=== PATIENT | female | born 1945 | race Caucasian/White ===

== ENCOUNTER 2017-08-04 17:06 | Emergency (ER) | payer MEDICARE ==
[2017-08-04 17:32] VITALS: BP 152/63
[2017-08-04] MEDS ORDERED: Lidocaine 1% MPF* 2 ML VIAL INJ ONE (18:26)
--- NOTE | 2017-08-04 18:54 | UC ---
Laceration HPI - History Of Current Complaint Chief Complaint: UCLaceration Stated Complaint: FINGER INJURY Time Seen by Provider: 08/04/17 18:18 Hx Obtained From: Patient Laceration Location: Finger - cut L 4th finger with sharp kitchen knife Mechanism Of Injury: Sharp Trauma Onset/Duration: Sudden Onset - 1-2 h ago Pain Intensity: 3 - Allergies/Home Medications Allergies/Adverse Reactions: Allergies Allergy/AdvReac Type Severity Reaction Status Date / Time ampicillin Allergy Vomiting Verified 08/04/17 17:33 Home Medications: Home Medications Levothyroxine TAB* [Synthroid 100 MCG TAB*] 1 tab PO DAILY 08/04/17 [History Confirmed 08/04/17] PMH/Surg Hx/FS Hx/Imm Hx Previously Healthy: Yes Endocrine History: Hypothyroidism - Surgical History Surgical History: Unable to Obtain/Confirm - Family History Known Family History: Positive: None - Social History Occupation: Retired Lives: Alone Alcohol Use: None Substance Use Type: None Smoking Status (MU): Former Smoker - Immunization History Most Recent Tetanus Shot: 10 yrs ago Review of Systems Constitutional: Negative Respiratory: Negative Cardiovascular: Negative Motor: Negative Neurological: Negative Psychological: Negative Is Patient Immunocompromised?: No All Other Systems Reviewed And Are Negative: Yes Physical Exam Triage Information Reviewed: Yes Appearance: Well-Appearing, No Pain Distress, Obese Vital Signs: Initial Vital Signs Temp 98.3 F 08/04/17 17:29 Pulse 67 08/04/17 17:29 Resp 18 08/04/17 17:29 BP 152/63 08/04/17 17:29 Pulse Ox 97 08/04/17 17:29 Vital Signs Reviewed: Yes Respiratory Exam: Normal Cardiovascular Exam: Normal Musculoskeletal Exam: Normal Musculoskeletal: Positive: Strength Intact, ROM Intact Neurological Exam: Normal Neurological: Positive: Alert Psychological Exam: Normal Skin Exam: Other - laceration L 4th finger Laceration Repair - Laceration Repair 1 Description: Linear Laceration Size After Repair: Length (cm) - 1.5cm, Width (mm) - 4mm, Depth (mm) - 3mm Modified For Repair: No Type Injection: Local Anesthesia Used: 1.0% Lido Cleansing Completed Via Routine Prep: Yes Closure Material: Sutures Closure Method: Single Layer Suture Of: Skin Suture Type: Nylon - 3 5.0 nylon sutres placed Laceration Course/Dx - Differential Dx - Laceration/Wound Differental Diagnoses: Avulsion, Laceration Provider Diagnoses: finger laceration Discharge - Discharge Plan Condition: Good Disposition: HOME Patient Education Materials: Laceration (ED) Referrals: Marianne Zamudio MD [Primary Care Provider] - 2 Days (for wound recheck) Additional Instructions: elevate hand keep clean and dry have sutures removed in 8-10 days ibuprofen 400mg every 6 hours as needed for pain
[2017-08-04] MEDS ORDERED: Tetan/Diph/Pertus SYR(Tdap)* 0.5 ML SYR(BOOSTRIX) use SYR IM ONE (18:58)
== END 2017-08-04 19:13 | disposition home or self-care (01) ==
LOC: UCEAST 17:06
DX: S61.215A Laceration without foreign body of left ring finger without damage to nail, initial encounter (principal); W26.0XXA Contact with knife, initial encounter; Y92.9 Unspecified place or not applicable; E03.9 Hypothyroidism, unspecified; Z87.891 Personal history of nicotine dependence
CPT/HCPCS: 12001; 99201; G0463

== ENCOUNTER 2018-03-18 08:56 | Emergency (ER) | payer MEDICARE ==
[2018-03-18 10:22] VITALS: BP 138/82
--- NOTE | 2018-03-18 10:55 | UC ---
Respiratory Complaint HPI - HPI Summary HPI Summary: 72 y/.o female with + PMH, + medications, reviewed, presents with cough since beginning of feb, dx'd with bronchitis, given Z-pack, however onyl took 4 pills. states symptoms improved, but returned, worse for past week. h/o bronchitis yearly, PNA x 2, recent PNA shot. + productive, green sputum. Denies SOB, chest pain. + lightheaded, dizziness from coughing. no ear, throat pain. + sinus pressure, pain , h/o allergies. - History of Current Complaint Chief Complaint: UCRespiratory Stated Complaint: COUGH,CONGESTED Time Seen by Provider: 03/18/18 10:28 Hx Obtained From: Patient ?: No Onset/Duration: Gradual Onset, Lasting Weeks, Worse Since - x 1 week Timing: Constant Severity Initially: Moderate Severity Currently: Moderate Pain Intensity: 7 Pain Scale Used: 0-10 Numeric Associated Signs And Symptoms: Positive: Fever - 99.60hits M, Chills - Risk Factors Pulmonary Embolism Risk Factors: Smoking - prior - Allergies/Home Medications Allergies/Adverse Reactions: Allergies Allergy/AdvReac Type Severity Reaction Status Date / Time ampicillin Allergy Vomiting Verified 03/18/18 10:22 Home Medications: Home Medications Calcium Carbonate [Calcium] 500 mg PO 03/18/18 [History] Lisinopril 10 mg PO 03/18/18 [History] Magnesium 30 mg PO 03/18/18 [History] Multivitamin [Multivitamins] 1 cap PO 03/18/18 [History] Omeprazole 20 mg PO 03/18/18 [History] PMH/Surg Hx/FS Hx/Imm Hx Previously Healthy: No - Surgical History Surgical History: Yes Surgery Procedure, Year, and Place: appy, tubal ligation, thyroid noduel removed , rt ewrist, mastectomy, ovarian ca - Family History Known Family History: Positive: None - Social History Alcohol Use: None Substance Use Type: None Smoking Status (MU): Former Smoker - Immunization History Most Recent Tetanus Shot: 10 yrs ago Review of Systems Constitutional: Chills, Fatigue ENT: Sinus Congestion, Sinus Pain/Tenderness Respiratory: Shortness Of Breath - at baseline, Cough Gastrointestinal: Negative Genitourinary: Negative Is Patient Immunocompromised?: No All Other Systems Reviewed And Are Negative: Yes Physical Exam Triage Information Reviewed: Yes Appearance: Well-Appearing, No Pain Distress, Well-Nourished Vital Signs: Initial Vital Signs Temp 97.8 F 03/18/18 10:16 Pulse 81 03/18/18 10:16 Resp 18 03/18/18 10:16 BP 138/82 03/18/18 10:16 Pulse Ox 98 03/18/18 10:16 Vital Signs Reviewed: Yes Eyes: Positive: Conjunctiva Clear ENT: Positive: Pharyngeal erythema - minimal no exudates, TMs normal, Sinus tenderness - max, Uvula midline. Negative: Tonsillar swelling, Tonsillar exudate, Muffled voice Neck: Positive: Supple, Nontender, No Lymphadenopathy Respiratory: Positive: Chest non-tender, Normal breath sounds, No respiratory distress, No accessory muscle use, Crackles - minimal LLL, Wheezing - minimal L LL Cardiovascular Exam: Normal Psychological Exam: Normal Skin Exam: Normal UC Diagnostic Evaluation - Laboratory O2 Sat by Pulse Oximetry: 98 Respiratory Course/Dx - Course Course Of Treatment: discussed CXR, patient declined due to treatment options, ABX for sinusitis to cover possible PNA due to no CXR + crackles. Follow up with PCP. - Differential Dx/Diagnosis Differential Diagnosis/HQI/PQRI: Pulmonary Edema, Influenza, Pneumothorax Provider Diagnoses: sinusitis, acute bronchitis Discharge - Sign-Out/Discharge Documenting (check all that apply): Patient Departure All imaging exams completed and their final reports reviewed: Yes - Discharge Plan Condition: Good Disposition: HOME Prescriptions: Albuterol HFA INHALER* [Ventolin HFA Inhaler*] 1 - 2 puff INH Q4H PRN #1 mdi PRN Reason: shortness of breath Fluconazole [Diflucan 150 MG (NF)] 150 mg PO ONCE #1 tab Levofloxacin TAB* [Levaquin 750 MG TAB*] 750 mg PO DAILY #7 tab Patient Education Materials: Levofloxacin (By mouth), Sinusitis (ED) Referrals: Marianne Zamudio MD [Primary Care Provider] - Additional Instructions: - Dlfucan as needed for yeast infection due to antibiotics - Levofloxacin daily x 7 days - Albuterol inhaler if needed for shortness of breath - over the counter cough drops, increase fluid intake, humidifier at night to decrease coughing - Return with fever > 101, increased cough, lightheaded, dizziness worsens - Billing Disposition and Condition Condition: GOOD Disposition: Home
== END 2018-03-18 11:00 | disposition home or self-care (01) ==
LOC: UCEAST 08:56
DX: J20.9 Acute bronchitis, unspecified (principal); J32.9 Chronic sinusitis, unspecified; Z88.0 Allergy status to penicillin; Z87.891 Personal history of nicotine dependence
CPT/HCPCS: 99212; G0463

== ENCOUNTER 2018-06-28 12:29 | Emergency (ER) | payer MEDICARE ==
--- NOTE | 2018-06-28 13:00 | UC ---
Hand/Wrist HPI - HPI Summary HPI Summary: 72 yo female presents with RIGHT middle finger pain and swelling distally. She tells me that for about a month she has had redness, pain, and swelling to this area. Over the last 1.5 weeks has been draining pus. She saw her PCP earlier this week who placed on her Keflex and she states it is getting worse. She does mention that she injured this area in September 2017 and the "finger hasn't bent right since". Denies fever or chills. - History Of Current Complaint Stated Complaint: FINGER COMPLAINT Time Seen by Provider: 06/28/18 13:00 Hx Obtained From: Patient Onset/Duration: Gradual Onset Severity Initially: Moderate Severity Currently: Severe Pain Intensity: 9 Pain Scale Used: 0-10 Numeric - Allergies/Home Medications Allergies/Adverse Reactions: Allergies Allergy/AdvReac Type Severity Reaction Status Date / Time ampicillin Allergy Vomiting Verified 06/28/18 13:02 Home Medications: Home Medications [place] 1 applic TOPICAL ONCE PRN 06/28/18 [History] Cephalexin CAP* [Keflex 500 CAP*] 1 tab PO BID 06/28/18 [History Confirmed 06/28] PMH/Surg Hx/FS Hx/Imm Hx Endocrine History: Hypothyroidism Cardiovascular History: Hypertension Respiratory History: Asthma GI/ History: Gastroesophageal Reflux - Surgical History Surgical History: Yes Surgery Procedure, Year, and Place: appy, tubal ligation, thyroid noduel removed , rt ewrist, mastectomy, ovarian ca - Family History Known Family History: Positive: None - Social History Occupation: Retired Lives: With Family Alcohol Use: None Substance Use Type: None Smoking Status (MU): Former Smoker - Immunization History Most Recent Tetanus Shot: 10 yrs ago Review of Systems All Other Systems Reviewed And Are Negative: Yes Constitutional: Positive: Negative Skin: Positive: Other - Right middle finger paronychia Respiratory: Positive: Negative Cardiovascular: Positive: Negative Neurological: Positive: Negative Psychological: Positive: Negative Physical Exam - Summary Physical Exam Summary: GENERAL: NAD. WDWN. No pain distress. SKIN: Right middle finger: Distal phalange with moderate erythema and edema. TTP. Paronychia presents on ulnar aspect of nail-skin fold. No active drainage. CHEST: No accessory muscle use. Breathing comfortably and in no distress. CV: Pulses intact radial and ulnar. Cap refill <2seconds MSK: FROM right middle finger. NEURO: Alert. Sensations intact hand and all fingers. PSYCH: Age appropriate behavior. Triage Information Reviewed: Yes Vital Signs: Vital Signs: Temp Pulse Resp BP Pulse Ox 97.2 F 98 18 134/88 98 06/28/18 12:55 06/28/18 12:55 06/28/18 12:55 06/28/18 12:55 06/28/18 12:55 Vital Signs Reviewed: Yes Hand/Wrist Course/Dx - Course Course Of Treatment: XR: IMPRESSION: #. Soft tissue swelling greatest distally without compelling radiographic findings of. osteomyelitis. If there is persistent clinical concern for osteomyelitis consider MRI for. further assessment. The procedure was explained to the pt and all questions were answered. A time out was performed, witnessed, and signed. The area was cleansed with an alcohol pad. LET was applied and let sit for ~20min. A 22G needle was used to lidia the area of paronychia. Yellow/brown purulent matter was able to be expressed. A culture was obtained. Wound bandaged with triple antibiotic and a band-aid. Pt tolerated procedure well. Will switch her to doxycycline as pt says it seems worse despite keflex. - Differential Dx/Diagnosis Provider Diagnosis: Paronychia of right middle finger Discharge - Sign-Out/Discharge Documenting (check all that apply): Patient Departure All imaging exams completed and their final reports reviewed: Yes - Discharge Plan Condition: Stable Disposition: HOME Prescriptions: DOXYcycline CAP(*) [DOXYcycline 100MG CAP(*)] 100 mg PO BID #14 cap Patient Education Materials: Paronychia (ED) Referrals: Marianne Zamudio MD [Primary Care Provider] - Additional Instructions: If you develop a fever, shortness of breath, chest pain, new or worsening symptoms - please call your PCP or go to the ED. STOP taking your keflex and start the DOXYCYCLINE Keep soaking your finger in warm salt water two or three times a day Keep the area covered with a bandaid until well healed - keep your follow up with your Primary Doctor for a recheck - Billing Disposition and Condition Condition: STABLE Disposition: Home - Attestation Statements Provider Attestation: Per institutional requirements, I have reviewed the chart, however, I was not consulted specifically or made aware of this patient by the midlevel provider. I did not personally evaluate, interact with , or disposition this patient.
[2018-06-28 13:02] VITALS: BP 134/88
[2018-06-28] MEDS: Lidocaine/Epineph/Tetraca SOL* (LET solution) 4 ML BTL TOPICAL ONE ×2 (13:23→13:30)
--- NOTE | 2018-06-30 15:10 | UC ---
- Progress Note Progress Note: please notify pt she should see her MD tomorrow if possible infection resistant to most oral antibiotics except the one she is allergic to ( amp) if finger worse go to ER it is possible that I and D may be curative Course/Dx - Diagnoses Provider Diagnoses: Paronychia of right middle finger Discharge - Sign-Out/Discharge Documenting (check all that apply): Post-Discharge Follow Up All imaging exams completed and their final reports reviewed: Yes - Discharge Plan Condition: Stable Disposition: HOME Prescriptions: DOXYcycline CAP(*) [DOXYcycline 100MG CAP(*)] 100 mg PO BID #14 cap Patient Education Materials: Paronychia (ED) Referrals: Marianne Zamudio MD [Primary Care Provider] - Additional Instructions: If you develop a fever, shortness of breath, chest pain, new or worsening symptoms - please call your PCP or go to the ED. STOP taking your keflex and start the DOXYCYCLINE Keep soaking your finger in warm salt water two or three times a day Keep the area covered with a bandaid until well healed - keep your follow up with your Primary Doctor for a recheck - Billing Disposition and Condition Condition: STABLE Disposition: Home
--- NOTE | 2018-06-30 15:36 | UC ---
- Progress Note Progress Note: Pt states ampicillin causes gi upset no true allergy will ERx pen vee K 500mg qid x 7 days and zofran 4 mg prn nausea Course/Dx - Diagnoses Provider Diagnoses: Paronychia of right middle finger Discharge - Sign-Out/Discharge Documenting (check all that apply): Post-Discharge Follow Up All imaging exams completed and their final reports reviewed: Yes - Discharge Plan Condition: Stable Disposition: HOME Prescriptions: DOXYcycline CAP(*) [DOXYcycline 100MG CAP(*)] 100 mg PO BID #14 cap Patient Education Materials: Paronychia (ED) Referrals: Marianne Zamudio MD [Primary Care Provider] - Additional Instructions: If you develop a fever, shortness of breath, chest pain, new or worsening symptoms - please call your PCP or go to the ED. STOP taking your keflex and start the DOXYCYCLINE Keep soaking your finger in warm salt water two or three times a day Keep the area covered with a bandaid until well healed - keep your follow up with your Primary Doctor for a recheck - Billing Disposition and Condition Condition: STABLE Disposition: Home
== END 2018-06-28 14:04 | disposition home or self-care (01) ==
LOC: UCEAST 12:29
DX: L03.011 Cellulitis of right finger (principal); Z88.0 Allergy status to penicillin; Z87.891 Personal history of nicotine dependence
CPT/HCPCS: 10060; 73140; 87070; 87077; 87106; 87186; 87205; 99212; G0463

== ENCOUNTER → 2018-07-24 11:32 | Day surgery (SDC) | payer MEDICARE ==
[~2018-07-24 11:32] MED LIST: Acetaminophen TAB* 325 MG PO PRN; Buffered Lidocaine 1% SYRIN* 1 ML/SYRINGE INTRADERM ONE; Bupivacaine 0.5%* 50 ML VIAL ONE; Clindamycin 900 MG/D5W BAG(*) 900 MG/50 ML BAG IVPB ONE; HYDROmorphone INJ1* 1 MG/ML SYRINGE IV PRN; Lactated Ringers 1000 ML Bag* 1,000 ML IV SCH; Lidocaine 1% INJ* 10 MG/ML 30 ML SDV ONE; Lidocaine 2% PF * 5 ML VIAL ONE; Midazolam* 1 MG/ML 2 ML VIAL (2 MG) ONE; Naloxone* 0.4 MG/ML 1 ML VIAL IV PRN; Ondansetron INJ* 2 MG/ML VIAL IV PRN; Propofol* 10 MG/ML 20 ML BTL ONE; fentaNYL* 50 MCG/ML 2 ML VIAL (100 MCG VIAL) ONE; oxyCODONE TAB* 5 MG TAB PO PRN
[2018-07-24 16:05] VITALS: BP 99/53
--- NOTE | 2018-07-25 20:00 | OP ---
DATE OF OPERATION: 07/24/18 - [facility] DATE OF : 45 SURGEON: Dr. You Rockwell. INSPECTOR HANDBAG FRAMES: Primo Gonsales. A physician certified registered dental assistant was required for the length of the procedure for assistance with the patient's positioning, retraction, and closure. ANESTHESIOLOGIST: Dalia Santamaria DO ANESTHESIA: Monitored anesthesia care with general sedation along with a local digital nerve block consisting of 10 cc of 1:1 ratio of lidocaine 1% and Marcaine 0.5% without epinephrine. PRE-OP DIAGNOSES: 1. Right long finger paronychia, acute/chronic, with bacterial and fungal infection. 2. Right long finger, ingrown nail plate. 3. Right long finger possible felon, finger pulp infection. POST-OP DIAGNOSES: 1. Right long finger paronychia, acute/chronic, likely just a fungal infection. 2. Right long finger, ingrown nail plate. 3. No sign of right long finger felon, finger pulp infection or of osteomyelitis. OPERATIVE PROCEDURE: 1. Right long finger nail plate removal. 2. Right long finger distal fingertip irrigation and drainage, pulp, nail folds , with marsupialization, single skin incision, proximal. ANTIBIOTICS: Clindamycin 900 mg was given after cultures were obtained intraoperatively. IV FLUIDS: See anesthesia note. TOURNIQUET TIME: A finger tourniquet was utilized for 20 minutes for the length of the procedure. [id number]-[id number] TIME: 20 minutes. SPECIMEN: Aerobic, anaerobic, and fungal culture swabs were obtained of the nail bed and skin folds after the nail plate was removed. IMPLANTS: None. COMPLICATIONS: None. ESTIMATED BLOOD LOSS: Minimal. INDICATIONS FOR PROCEDURE: The patient is a 73-year-old woman, who presented to me for the first time in clinic on 07/09/18. See history and physical for full description of prior care, but the patient in short had had symptoms for approximately 6 weeks. She describes pus, treated with oral antibiotics and then treated with just decompression with a needle with some drainage, persistent. The patient also had some skin changes, but only at the distal tip of the nail plate in clinic and she attributed that to an injury to the fingertip last September, at which point she did not have any signs of infection, but just nail plate trauma. The patient from an ER convenient care visit, had had her pus cultured on 06/28/18 and that was read as showing Enterococcus faecalis, penicillin sensitive as well as Kathie albicans. The patient had been soaking her finger very aggressively to get rid off of her bacterial infection. She had been on a variety of antibiotics, but was on penicillin when I met her. I had her continue the penicillin until surgery date. There was some delay between clinic visit on 07/09/18 and surgery because of obtaining medical clearance. I examined the patient again in preoperative holding. I discussed with the patient in clinic doing a partial nail plate removal and irrigation and debridement of the nail fold on one side. However, her nail plate looked worse when I examined her in preoperative holding. It was still curved, digging in on either the radial or the ulnar side significantly into the skin. I believe that was the ulnar side of the nail plate really digging into the skin. However , the nail plate looked well attached to the underlying nail bed and as well the nail plate had lost more of its shininess, consistent with more of a fungal infection picture. Although the patient told me in preoperative holding that she had had pus draining that day, the day of the procedure, I saw no pus visible. She had some swelling and some redness to the fingertip. The patient was concerned about an infection in the finger pulp because she pointed to pain there. The patient was also concerned about an infection to her joint and bone. However, she had no pain whatsoever with active range of motion at the DIP joint. Preoperative x-rays had shown no bony changes. I changed the procedure to indicate that the patient was going to undergo a right long finger partial or complete nail plate removal, possible irrigation and debridement of finger pulp, possible marsupialization of the proximal nail fold. DESCRIPTION OF PROCEDURE: The patient was taken back to the operating room on a stretcher on which she remained. She was sedated by Anesthesia. Hand table was applied. The patient received a digital nerve block. I did a flexor tendon sheath block followed by digital nerves on either side of the finger followed by dorsal cutaneous nerve block with 10 cc. The patient's right hand was prepped and draped. Surgical time-out was performed. Tourni-Cot was applied to the base of the right long finger. I inspected the finger. I vigorously palpated it; no pus emanated from about the nail plate and bed. The nail plate looked diseased along much of it width, ulnar to radial, so I decided to remove it entirely. I used a #11 blade to release the nail plate sharply from the overlying proximal nail fold. I used a [place] to separate the nail plate from the underlying nail bed. I then was able to easily without much force remove the nail plate with a needle assembly line driver. Underlying, there was no sign of pus. The nail bed looked like it was in very good shape. No clear infection to it with the exception of the distal and the distal ulnar aspects of the nail bed looked slightly beaten up, but there was certainly no pus and certainly no clear fungal infection. I debrided the recess on the ulnar distal part of the nail fold where the nail had been really digging in there. Likewise, no pus there. I irrigated the whole wound. To most aggressively eradicate any possible fungal infection, I decided next to do a proximal release and possible marsupialization. I made an incision in the skin parallel to the proximal nail fold, 2 mm proximal to it. The tissue looked very healthy. I respected the dermal matrix and did not make the incision into it. There was no disease looking tissue there, so I decided not to excise a fragment with a separate proximal incision. I had not appreciated any clear fluctuance of the pulp, but for thoroughness sake, I made an incision in the finger pulp, volarly. I spread dissection down to bone. There was no pus anywhere in the finger pulp. The bone felt rigid and not soft consistent with no osteomyelitis. I irrigated that. I closed the volar incision with a stitch using nylon 4-0 suture. I did not close the marsupialization incision to allow some drainage from there. To allow for proper healing, I took some sterile aluminum from a suture set, cut it to the size of the former nail plate and inserted it under the nail folds. I sutured it in place, loosely with 2 simple stitches using Monocryl 4- 0 suture. I cut the Tourni-Cot. I applied a dry sterile dressing and overwrapped it with Coban. The patient was awakened, lightened of sedation and transferred to the PACU. DISPOSITION: The patient was to keep the dressing intact and dry. In case she got it wet, she was given some dressing supplies. The patient is to follow up with me in clinic next week. We will hold the patient off the antibiotic at this time as there is no clear bacterial infection and I believe this is more of a ingrown nail and fungal infection. When she returns to clinic next week, we will do a wound check, and discuss possible topical antifungals, keep the fingertip dry, and discuss removal of that foil covering that is providing some temporary protection of the nail bed. [id number]/[facility] #: [id number] MTDD
== END | disposition home or self-care (01) ==
LOC: OR 11:32
PROVIDERS: ATTEND Orthopaedic Surgery
DX: L03.011 Cellulitis of right finger (principal); L60.0 Ingrowing nail; Z87.891 Personal history of nicotine dependence; Z85.3 Personal history of malignant neoplasm of breast; Z85.43 Personal history of malignant neoplasm of ovary
CPT/HCPCS: 87070; 87073; 87077; 87101; 87186; 87205; 87640; 87641; J2250; J2704; J3010

== ENCOUNTER 2019-01-31 11:32 | Emergency (ER) | payer MEDICARE ==
[2019-01-31 12:35] VITALS: BP 127/71
--- NOTE | 2019-01-31 12:58 | UC ---
General HPI - HPI Summary HPI Summary: 73-year-old woman comes in with a chief complaint of chest congestion and shortness of breath. Patient's had chest congestion for about one month. Most of time the sputum is white. Last evening she had a coughing fit that she brought up green sputum. Reports loss she has midsternal chest tightness. She believes the chest tightness is from the chest congestion. She denies concern of heart problems. No pedal edema no calf pain. She's had chills. She does not have a thermometer to check if she has had elevated temperature. She is mildly short of breath at rest worse with any kind of activity. - History of Current Complaint Chief Complaint: UCRespiratory Stated Complaint: COUGH, AND CHEST CONGESTION Time Seen by Provider: 01/31/19 12:36 Pain Intensity: 4 - Allergy/Home Medications Allergies/Adverse Reactions: Allergies Allergy/AdvReac Type Severity Reaction Status Date / Time amoxicillin [From Augmentin] Allergy Vomiting Verified 07/24/18 12:32 ampicillin Allergy Vomiting Verified 07/24/18 12:32 chromium Allergy Rash Verified 07/24/18 12:32 clavulanic acid Allergy Vomiting Verified 07/24/18 12:32 [From Augmentin] PMH/Surg Hx/FS Hx/Imm Hx Previously Healthy: Yes - . iT Endocrine History: Hypothyroidism Cardiovascular History: Hypertension Respiratory History: COPD GI/ History: Gastroesophageal Reflux - Surgical History Surgical History: Yes Surgery Procedure, Year, and Place: APPENDECTOMY, tubal ligation, thyroid nodule removed, rt wrist, mastectomy, HYSTERECTOMY - Family History Known Family History: Positive: None - Social History Alcohol Use: None Substance Use Type: None Smoking Status (MU): Former Smoker Amount Used/How Often: 1/2 PPD X 50 YEARS Have You Smoked in the Last Year: No When Did the Patient Quit Smoking/Using Tobacco: 2 YEARS AGO - Immunization History Most Recent Tetanus Shot: 10 yrs ago Review of Systems All Other Systems Reviewed And Are Negative: Yes Constitutional: Positive: Other - SEE HPI Skin: Positive: Negative Eyes: Positive: Negative ENT: Positive: Sore Throat Respiratory: Positive: Shortness Of Breath, Cough, Other - SEE HPI Cardiovascular: Positive: Chest Pain Gastrointestinal: Positive: Negative Motor: Positive: Negative Neurovascular: Positive: Negative Musculoskeletal: Positive: Negative Neurological: Positive: Negative Psychological: Positive: Negative Is Patient Immunocompromised?: No Physical Exam Triage Information Reviewed: Yes Appearance: No Pain Distress, Well-Nourished, Ill-Appearing - MILD Vital Signs: Initial Vital Signs Temp 98 F 01/31/19 12:32 Pulse 94 01/31/19 12:32 Resp 17 01/31/19 12:32 BP 127/71 01/31/19 12:32 Pulse Ox 97 01/31/19 12:32 Vital Signs Reviewed: Yes Eye Exam: Normal Eyes: Positive: Conjunctiva Clear ENT: Positive: Pharynx normal, TMs normal Neck: Positive: Supple Respiratory: Positive: No respiratory distress, Rhonchi - B/L Cardiovascular: Positive: RRR Musculoskeletal: Positive: Strength Intact, ROM Intact, No Edema - NO CALF TENDERNESS Neurological: Positive: Alert Psychological: Positive: Normal Response To Family, Age Appropriate Behavior Skin Exam: Normal Diagnostics - EKG Cardiac Rate: NL - AT 1335 Cardiac Rhythm: Sinus: Normal - 72BPM Ectopy: None ST Segment: Normal Course/Dx - Course Course Of Treatment: Patient Name: MARIANO LI Medical Record#: [id number] Ordering Physician: Tarik Naik MD Acct.#: [id number] : 1945 Age: 73 Sex: F Location: [facility] Exam Date: 01/31/19 1254 ADM Status: REG ER Order Information: CHEST PA LAT 2 VWS Accession Number: [id number] CPT: 24077 INDICATION: Shortness of breath COMPARISON: There are no relevant prior studies available for comparison. TECHNIQUE: Dual-energy PA and lateral views of the chest were obtained. FINDINGS: The lungs are clear. There is no pleural effusion. The cardiomediastinal silhouette is within normal limits. The upper abdominal contents are normal. Osseous structures are unremarkable. IMPRESSION: No acute cardiopulmonary process by radiograph <Electronically signed by Gurpreet Noe MD in [place]> 01/31/19 1330 I discussed the chest x-ray and EKG with the patient and her daughter. No pneumonia seen on chest x-ray. With the patient shortness breath and intermittent chest tightness I recommended evaluation and treatment in the emergency department which the patient declined. We have discussion about causes of chest pain and that we are unable to ensure there is no cardiac cause for her chest pain today without being able to do time the labs. This was all discussed with the patient and her daughter. Patient prefers to be treated for infection and then go to the emergency department if worse or not improved. - Diagnoses Provider Diagnosis: Bronchitis, COPD (chronic obstructive pulmonary disease) Discharge - Sign-Out/Discharge Documenting (check all that apply): Patient Departure All imaging exams completed and their final reports reviewed: Yes - Discharge Plan Condition: Stable Disposition: HOME Prescriptions: Albuterol HFA INHALER* [Ventolin HFA Inhaler*] 2 puff INH Q4H PRN #1 mdi PRN Reason: Wheezing Azithromyxin SHREE (NF) [Z-Shree (Zithromax) 250 mg tabs #6] 2 tab PO .TODAY, THEN 1 DAILY #6 tab predniSONE TAB* [Deltasone 20 MG TAB*] 20 mg PO DAILY #5 tab Patient Education Materials: Acute Bronchitis (ED), COPD (Chronic Obstructive Pulmonary Disease) (ED) Referrals: Marianne Zamudio MD [Primary Care Provider] - Additional Instructions: FOLLOW UP WITH YOUR DOCTOR. GO TO THE EMERGENCY DEPARTMENT IF YOUR CONDITION DOES NOT IMPROVE OR WORSENS OR ANY QUESTIONS OR CONCERNS. - Billing Disposition and Condition Condition: STABLE Disposition: Home
== END 2019-01-31 14:07 | disposition home or self-care (01) ==
LOC: UCEAST 11:32
DX: J44.9 Chronic obstructive pulmonary disease, unspecified (principal); E03.9 Hypothyroidism, unspecified; I10 Essential (primary) hypertension; K21.9 Gastro-esophageal reflux disease without esophagitis; Z87.891 Personal history of nicotine dependence
CPT/HCPCS: 71046; 99211; G0463

== ENCOUNTER 2019-04-29 11:21 | Emergency (ER) | payer MEDICARE ==
[2019-04-29 12:55] VITALS: BP 130/63
--- NOTE | 2019-04-29 13:17 | UC ---
Hand/Wrist HPI - HPI Summary HPI Summary: LAST NIGHT FELL WHILE TRYING TO STOP HER CAT FROM RUNNING OUTSIDE. SHE SLIPPED ON THE ICE AND INJURED HER LEFT FOREARM/WRIST AND RIGHT WRIST. HAS SWELLING AND BRUISING TO THE LEFT FOREARM. - History Of Current Complaint Chief Complaint: UCUpperExtremity Stated Complaint: ARM INJURY Time Seen by Provider: 04/29/19 13:02 Hx Obtained From: Patient Onset/Duration: Sudden Onset, Lasting Hours, Still Present Severity Initially: Moderate Severity Currently: Moderate Pain Intensity: 7 Pain Scale Used: 0-10 Numeric Character Of Pain: Sharp Aggravating Factor(s): Movement Alleviating Factor(s): Rest Associated Signs And Symptoms: Positive: Swelling, Bruising, Numbness/Tingling Related History: Dominant Hand Right - Allergies/Home Medications Allergies/Adverse Reactions: Allergies Allergy/AdvReac Type Severity Reaction Status Date / Time amoxicillin [From Augmentin] Allergy Vomiting Verified 04/29/19 12:55 ampicillin Allergy Vomiting Verified 04/29/19 12:55 chromium Allergy Rash Verified 04/29/19 12:55 clavulanic acid Allergy Vomiting Verified 04/29/19 12:55 [From Augmentin] Home Medications: Home Medications Calcium Carb/D3/Magnesium/Zinc [Alphonso Mag Zinc-D3 Tablet] 1 tab PO DAILY 04/29/19 [History Confirmed 04/29/19] Naproxen Sodium [Aleve] 440 mg PO ONCE PRN 04/29/19 [History Confirmed 04/29/19] [place] - For Leg Cramps 1 tab PO DAILY 04/29/19 [History] PMH/Surg Hx/FS Hx/Imm Hx Endocrine History: Hypothyroidism Cardiovascular History: Hypertension Respiratory History: COPD - Surgical History Surgical History: Yes Surgery Procedure, Year, and Place: APPENDECTOMY, tubal ligation, thyroid nodule removed, rt wrist, mastectomy bilateral, HYSTERECTOMY - Family History Known Family History: Positive: None - Social History Alcohol Use: None Substance Use Type: None Smoking Status (MU): Former Smoker Type: Cigarettes Amount Used/How Often: 1/2 PPD X 50 YEARS Have You Smoked in the Last Year: No When Did the Patient Quit Smoking/Using Tobacco: 2 YEARS AGO - Immunization History Most Recent Influenza Vaccination: 2018 Most Recent Tetanus Shot: 10 yrs ago Most Recent Pneumonia Vaccination: 2019 Review of Systems All Other Systems Reviewed And Are Negative: Yes Constitutional: Positive: Negative Skin: Positive: Bruising Respiratory: Positive: Negative Cardiovascular: Positive: Negative Gastrointestinal: Positive: Negative Musculoskeletal: Positive: Arthralgia, Decreased ROM, Edema Physical Exam Triage Information Reviewed: Yes Appearance: Well-Appearing, No Pain Distress, Well-Nourished Vital Signs: Initial Vital Signs Temp 98.1 F 04/29/19 12:49 Pulse 76 04/29/19 12:49 Resp 18 04/29/19 12:49 BP 130/63 04/29/19 12:49 Pulse Ox 97 04/29/19 12:49 Vital Signs Reviewed: Yes Eyes: Positive: Conjunctiva Clear ENT: Positive: Hearing grossly normal Neck: Positive: Supple Respiratory: Positive: No respiratory distress, No accessory muscle use Cardiovascular: Positive: Pulses Normal Abdomen Description: Positive: Soft Musculoskeletal: Positive: ROM Limited @ - LEFT WRIST, Edema @ - LEFT WRIST, Other: - TTP LEFT ULNAR STYLOID PROCESS AND DISTAL LEFT ULNA. TTP RIGHT WRIST RADIAL ASPECT Neurological: Positive: Alert Psychological: Positive: Age Appropriate Behavior Skin: Positive: Other - BRUISING ULNAR ASPECT DISTAL LEFT FOREARM Diagnostics - Radiology RIGHT WRIST XRAYS Radiology Interpretation Completed By: Radiologist Summary of Radiographic Findings: 1. OSTEOPENIA. 2. OSTEOARTHRITIS. 3. NO ACUTE OSSEOUS INJURY. THE DEGREE OF OSTEOPENIA MAY MAKE A NONDISPLACED FRACTURE RADIOGRAPHICALLY OCCULT. IF SYMPTOMS PERSIST, RECOMMEND REPEAT IMAGING. No standard instances Radiology Interpretation Completed By: Radiologist Summary of Radiographic Findings: PROBABLE NONDISPLACED FRACTURE OF THE STYLOID PROCESS OF THE RADIUS. RECOMMEND CORRELATION WITH SITE OF PAIN. Hand/Wrist Course/Dx - Differential Dx/Diagnosis Provider Diagnosis: Right wrist sprain, Nondisplaced fracture of left radial styloid process, initial encounter for closed fracture Discharge ED - Sign-Out/Discharge Documenting (check all that apply): Patient Departure All imaging exams completed and their final reports reviewed: Yes - Discharge Plan Condition: Stable Disposition: HOME Patient Education Materials: Wrist Fracture in Adults (ED), Wrist Sprain (ED) Referrals: Steven Mccallum MD [Medical Doctor] - 3 Days Additional Instructions: XRAYS OF LEFT FOREARM SHOW PROBABLE NONDISPLACED FRACTURE OF THE STYLOID PROCESS OF THE RADIUS. NO CLEAR FRACTURE OF RIGHT WRIST. WEAR THE SPLINTS UNTIL SEEN BY ORTHOPEDICS. CALL ORTHOPEDICS TODAY FOR FOLLOW- UP APPOINTMENT THIS WEEK. REST, ICE, ELEVATE. - Billing Disposition and Condition Condition: STABLE Disposition: Home
== END 2019-04-29 14:50 | disposition home or self-care (01) ==
LOC: UCEAST 11:21
DX: S63.501A Unspecified sprain of right wrist, initial encounter (principal); S52.515A Nondisplaced fracture of left radial styloid process, initial encounter for closed fracture; I10 Essential (primary) hypertension; J44.9 Chronic obstructive pulmonary disease, unspecified; Z88.0 Allergy status to penicillin; Z91.09 Other allergy status, other than to drugs and biological substances; Z87.891 Personal history of nicotine dependence; W19.XXXA Unspecified fall, initial encounter; Y92.9 Unspecified place or not applicable
CPT/HCPCS: 99213; G0463